=== PATIENT | female | born 1940 | race Caucasian/White ===

== ENCOUNTER 2016-12-07 08:55 | Observation (INO) | payer OTHER, BC ==
--- NOTE | 2016-12-07 09:10 | CPEKG ---
Heart Rate: 74 RR Interval: 811 P-R Interval: 144 QRSD Interval: 82 QT Interval: 404 QTC Interval: 449 P [place]: 21 QRS [place]: -33 T Wave [place]: 39 EKG Severity - OTHERWISE NORMAL ECG - EKG Impression: SINUS RHYTHM EKG Impression: LEFT AXIS DEVIATION Electronically Signed By: Emma Rocha 07-Dec-2016 14:56:21
--- NOTE | 2016-12-07 09:13 | EDPHY ---
H & P Time Seen by Provider: 12/07/16 09:09 HPI/ROS: CHIEF COMPLAINT: Chest pain HISTORY OF PRESENT ILLNESS: 76 year old female presents with a chief complaint of chest pain and shortness of breath. 2 days ago, she was sitting and developed a sharp pain on the left side of her chest radiating to her shoulder and neck, with associated feeling of fullness in her neck and ear. The episode lasted around 10 minutes, but her arm and shoulder continued to hurt throughout the afternoon. She took an aspirin at that time to relieve symptoms. Today around 5:00am, she woke up with left-sided pain in her chest, ribs, arm, and neck. The discomfort has remained constant since onset, four and a half hours ago. The pain increases with deep inspiration and coughing. She has had similar episodes of chest discomfort over the past few months, but none have lasted as long, and she has attributed these to muscle tightness and has not followed up with her primary care provider. Associated with feeling more short of breath than usual over the last few days, especially when doing minor tasks, and a dry cough beginning this morning. No calf pain or swelling. No fever, nausea, vomiting, headache, urinary complaints, or other associated symptoms. REVIEW OF SYSTEMS: Constitutional: No fever, no chills Eyes: No visual changes ENT: No sore throat Gastrointestinal: No nausea, no vomiting, no abdominal pain Genitourinary: No hematuria, no dysuria Musculoskeletal: No leg pain or swelling Skin: No rash Neurological: No headache, no numbness, no weakness Psychiatric: No depression Past Medical/Surgical History: 1. Asthma 2. Recent foot surgery. Social History: at bedside. Smoking Status: Never smoked Physical Exam: General Appearance: Alert, pleasant Eyes: Pupils equal and round, no conjunctival pallor or injection ENT, Mouth: Mucous membranes moist Neck: Normal inspection Respiratory: Lungs are clear to auscultation Cardiovascular: Regular rate and rhythm Gastrointestinal: Abdomen is soft and nontender Neurological: A&O, nonfocal, normal gait Skin: Warm and dry, no rash Extremities: Nontender, no pedal edema Psychiatric: Anxious Constitutional: Initial Vital Signs Temperature (C) 36.4 C 12/07/16 08:57 Heart Rate 79 12/07/16 08:57 Respiratory Rate 18 12/07/16 08:57 Blood Pressure 148/72 H 12/07/16 08:57 O2 Sat (%) 95 12/07/16 08:57 O2 Delivery Mode Room Air Allergies/Adverse Reactions: Penicillins Allergy (Verified 12/07/16 08:57) Sulfa (Sulfonamide Antibiotics) Allergy (Verified 12/07/16 08:57) Home Medications: Medication Instructions Recorded Albuterol [Proventil Inhaler HFA 2 puffs IH Q4H PRN 12/07/16 (*)] Aspirin [Aspirin 81mg (*)] 162 mg PO DAILY PRN 12/07/16 Budesonide/Formoterol Fumarate 2 puffs IH BID 12/07/16 [Symbicort 80-4.5 Mcg Inhaler] Calcium Carbonate/Vitamin D3 1 each PO DAILY 12/07/16 [Calcium 600 + D3 Softgel] Cetirizine [ZyrTEC 10 mg (*)] 10 mg PO DAILY 12/07/16 Cholecalciferol Vit D3 [Vitamin D3 1,000 units PO DAILY 12/07/16 (*)] Estradiol [Climara] 0.025 mg TD TU 12/07/16 Herbals/Supplements -Info Only 1 ea PO DAILY 12/07/16 Multivitamins [Multivitamin (*)] 1 each PO DAILY 12/07/16 [place]-3 Fatty Acids [Fish Oil 1000 1,000 mg PO DAILY 12/07/16 mg (*)] Medical Decision Making - Diagnostics EKG Interpretation: 09:08 EKG interpreted by me reveals normal sinus rhythm, rate 74, no ST/T changes. Interpretation: normal EKG. 10:35 EKG interpreted by me reveals normal sinus rhythm, rate 59, borderline R wave progression, no ST/T changes. Interpretation: normal EKG. Imaging Results: Imaging Impressions Chest/Thorax CTA 12/07/16 09:43 Impression: 1. No visible pulmonary embolus. 2. Scattered stable bronchiectasis, possibly related to JU. 3. Additional findings as above. Findings discussed with Dr. Emma Rocha on 12/07/2016 at 1037 hours. Imaging: Discussed imaging studies w/ call box wirer Radiologist ED Course/Re-evaluation: Clinical presentation concerning for acute coronary syndrome versus pulmonary embolism. Stat EKG reveals no evidence of ischemia or dysrhythmia. Plan for CXR and labs including CBC, BMP, Troponin, D-dimer, and BNP. Plan to administer 15mg IV Toradol for pain relief. 9:45 D-dimer elevated at 0.61. Plan for CT angiogram of the chest to assess for pulmonary embolism. 9:53 Troponin and BNP negative. 10:30am: c/o increased cp. Repeat EKG and Morphine IV ordered. Repeat EKG is unchanged. 10:[address] Tucker, radiologist. CTA negative for pulmonary embolism. Plan to admit for continued observation. Discussed with patient, she concurs. She continues to have moderate left-sided chest pain. 10:59 consulted with [address]ist service. Dr. Crocker accepts admission for chest pain. Differential Diagnosis: The differential diagnosis for the patient's chest pain included but was not limited to myocardial ischemia, pulmonary embolus, chest wall pain, pleural inflammation, and pulmonary infectious causes. - Data Points Laboratory Results: Laboratory Results 12/07/16 09:10 12/07/16 09:10 12/07/16 12/07/16 12/07/16 09:10 09:10 09:10 WBC 7.08 10^3/uL 10^3/uL (3.80-9.50) RBC 4.93 10^6/uL 10^6/uL (4.18-5.33) Hgb 15.5 g/dL g/dL (12.6-16.3) Hct 44.5 % % (38.0-47.0) MCV 90.3 fL fL (81.5-99.8) MCH 31.4 pg pg (27.9-34.1) MCHC 34.8 g/dL g/dL (32.4-36.7) RDW 13.7 % % (11.5-15.2) Plt Count 288 10^3/uL 10^3/uL (150-400) MPV 10.4 fL fL (8.7-11.7) Neut % (Auto) 56.2 % % (39.3-74.2) Lymph % (Auto) 26.3 % % (15.0-45.0) [place] % (Auto) 11.2 % % (4.5-13.0) Eos % (Auto) 4.1 % % (0.6-7.6) Baso % (Auto) 1.8 % H % (0.3-1.7) Nucleat RBC Rel Count 0.0 % % (0.0-0.2) Absolute Neuts (auto) 3.98 10^3/uL 10^3/uL (1.70-6.50) Absolute Lymphs (auto) 1.86 10^3/uL 10^3/uL (1.00-3.00) Absolute Monos (auto) 0.79 10^3/uL 10^3/uL (0.30-0.80) Absolute Eos (auto) 0.29 10^3/uL 10^3/uL (0.03-0.40) Absolute Basos (auto) 0.13 10^3/uL H 10^3/uL (0.02-0.10) Absolute Nucleated RBC 0.00 10^3/uL 10^3/uL (0-0.01) Immature Gran % 0.4 % % (0.0-1.1) Immature Gran # 0.03 10^3/uL 10^3/uL (0.00-0.10) D-Dimer 0.61 ug/mLFEU H ug/mLFEU (0.00-0.50) Sodium 145 mEq/L H mEq/L (134-144) Potassium 4.0 mEq/L mEq/L (3.5-5.2) Chloride 109 mEq/L mEq/L (97-110) Carbon Dioxide 21 mEq/l L mEq/l (22-31) Anion Gap 15 mEq/L mEq/L (8-16) BUN 13 mg/dL mg/dL (7-23) Creatinine 0.9 mg/dL mg/dL (0.6-1.0) Estimated GFR > 60 Glucose 93 mg/dL mg/dL (70-100) Calcium 9.8 mg/dL mg/dL (8.5-10.4) Troponin I < 0.012 ng/mL ng/mL (0-0.034) NT-Pro-B Natriuret Pep 89 pg/mL pg/mL (0-450) Medications Given: Discontinued Medications Ketorolac Tromethamine (Toradol) 15 mg IVP EDNOW ONE Stop: 12/07/16 09:46 Last Admin: 12/07/16 10:20 Dose: 15 mg Morphine Sulfate (Morphine) 4 mg IVP EDNOW ONE Stop: 07/11/17 10:32 Last Admin: 12/07/16 10:44 Dose: 4 mg Ondansetron HCl (Zofran) 4 mg IVP EDNOW ONE Stop: 12/07/16 10:32 Last Admin: 12/07/16 10:44 Dose: 4 mg Departure - Departure Disposition: [facility] Inpatient Acute Clinical Impression: Chest pain Qualifiers: Chest pain type: other chest pain Qualified Code(s): R07.89 - Other chest pain Condition: Fair Report Scribed for: Emma Rocha Report Scribed by: Anali Singleton Date of Report: 12/07/16 Time of Report: 09:11 Physician Review and Approval Statement: 12/07/16 09:11 Portions of this note were transcribed by a medical records clerk. I personally performed a history, physical exam, medical decision making, and confirmed accuracy of information the transcribed note 12/07/16 09:17
[2016-12-07 09:36] LABS: ANION GAP 15 mEq/L (8-16); CALCIUM 9.8 mg/dL (8.5-10.4); CARBON DIOXIDE 21 mEq/l (22-31); CHLORIDE 109 mEq/L (97-110); CREATININE 0.9 mg/dL (0.6-1.0); GLOMERULAR FILTRATION RATE > 60; GLUCOSE 93 mg/dL (70-100); SODIUM 145 mEq/L (134-144)
[2016-12-07 09:42] LABS: % IMMATURE GRANULYOCYTES 0.4 % (0.0-1.1); ABSOLUTE IMMATURE GRANULOCYTES 0.03 10^3/uL (0.00-0.10); ADD DIFF? NO; ADD MORPH? NO; ADD SCAN? NO; ATYPICAL LYMPHOCYTE FLAG 20 (0-99); FRAGMENT RBC FLAG 0 (0-99); HEMATOCRIT 44.5 % (38.0-47.0); HEMOGLOBIN 15.5 g/dL (12.6-16.3); LEFT SHIFT FLG 0 (0-99); LIPEMIA HEMOLYSIS FLAG 90 (0-99); MEAN CELL HEMOGLOBIN 31.4 pg (27.9-34.1); MEAN CELL HEMOGLOBIN CONCENTR. 34.8 g/dL (32.4-36.7); MEAN CELL VOLUME 90.3 fL (81.5-99.8); MEAN PLATELET VOLUME 10.4 fL (8.7-11.7); PLATELET CLUMPS FLAG 0 (0-99); PLATELET COUNT 288 10^3/uL (150-400); RED BLOOD CELL COUNT 4.93 10^6/uL (4.18-5.33); RED CELL DISTRIBUTION WIDTH 13.7 % (11.5-15.2)
[2016-12-07] MEDS ORDERED: KETOROLAC 15 MG/1 ML SDV IVP ONE (09:45)
[2016-12-07 09:47] LABS: TROPONIN I < 0.012 ng/mL (0-0.034)
[2016-12-07] MEDS ORDERED: IOPAMIDOL (ISOVUE 370) 100 ML BTL IV ONE (09:53)
[2016-12-07] MEDS ORDERED: ONDANSETRON 4 MG/2 ML VIAL IVP ONE (10:31)
--- NOTE | 2016-12-07 10:37 | CPEKG ---
Heart Rate: 59 RR Interval: 1017 P-R Interval: 196 QRSD Interval: 82 QT Interval: 460 QTC Interval: 456 P Coden: 26 QRS Coden: -2 T Wave Coden: 37 EKG Severity - BORDERLINE ECG - EKG Impression: SINUS RHYTHM EKG Impression: BORDERLINE R WAVE PROGRESSION, ANTERIOR LEADS Electronically Signed By: Emma Rocha 07-Dec-2016 14:56:03
[2016-12-07] MEDS ORDERED: ACETAMINOPHEN 325 MG TAB PO PRN (14:09)
[2016-12-07] MEDS ORDERED: ONDANSETRON 4 MG/2 ML VIAL IVP PRN (14:09)
[2016-12-07] MEDS ORDERED: ALBUTEROL 3 ML DEYVIAL IH PRN (14:09)
[2016-12-07] MEDS ORDERED: ONDANSETRON DISINTEGRATING 4 MG TAB PO PRN (14:09)
[2016-12-07] MEDS ORDERED: ALBUTEROL 60 PUFFS/8 GM MDI IH PRN (14:12)
--- NOTE | 2016-12-07 14:44 | PDGENHP ---
History Information - Allergies/Home Medication List Allergies/Adverse Reactions: Penicillins Allergy (Verified 12/07/16 08:57) Sulfa (Sulfonamide Antibiotics) Allergy (Verified 12/07/16 08:57) Home Medications: Albuterol [Proventil Inhaler HFA (*)] 2 puffs IH Q4H PRN 12/07/16 [Last Taken Unknown] Aspirin [Aspirin 81mg (*)] 162 mg PO DAILY PRN 12/07/16 [Last Taken 12/05/16] Budesonide/Formoterol Fumarate [Symbicort 80-4.5 Mcg Inhaler] 2 puffs IH BID 04/15 [Last Taken Unknown] Calcium Carbonate/Vitamin D3 [Calcium 600 + D3 Softgel] 1 each PO DAILY [Last Taken 12/06/16] Cetirizine [ZyrTEC 10 mg (*)] 10 mg PO DAILY 12/07/16 [Last Taken 12/06/16] Cholecalciferol Vit D3 [Vitamin D3 (*)] 1,000 units PO DAILY 12/07/16 [Last Taken 12/06/16] Estradiol [Climara] 0.025 mg TD TU 12/07/16 [Last Taken 12/07/16] Herbals/Supplements -Info Only 1 ea PO DAILY 12/07/16 [Last Taken Unknown] Multivitamins [Multivitamin (*)] 1 each PO DAILY 12/07/16 [Last Taken 12/06/16] [place]-3 Fatty Acids [Fish Oil 1000 mg (*)] 1,000 mg PO DAILY 12/07/16 [Last Taken 12/06/16] - Social History Smoking Status: Never smoked Physical Exam Temp Pulse Resp BP Pulse Ox 36.7 C 54 L 20 116/54 L 97 12/07/16 12:33 12/07/16 12:33 12/07/16 12:33 12/07/16 12:33 12/07/16 12:33 O2 (L/minute) 2 Lab Data & Imaging Review 12/07/16 09:10 12/07/16 09:10 WBC 7.08 10^3/uL (3.80-9.50) 12/07/16 09:10 RBC 4.93 10^6/uL (4.18-5.33) 12/07/16 09:10 Hgb 15.5 g/dL (12.6-16.3) 12/07/16 09:10 Hct 44.5 % (38.0-47.0) 12/07/16 09:10 MCV 90.3 fL (81.5-99.8) 12/07/16 09:10 MCH 31.4 pg (27.9-34.1) 12/07/16 09:10 MCHC 34.8 g/dL (32.4-36.7) 12/07/16 09:10 RDW 13.7 % (11.5-15.2) 12/07/16 09:10 Plt Count 288 10^3/uL (150-400) 12/07/16 09:10 MPV 10.4 fL (8.7-11.7) 12/07/16 09:10 Neut % (Auto) 56.2 % (39.3-74.2) 12/07/16 09:10 Lymph % (Auto) 26.3 % (15.0-45.0) 12/07/16 09:10 [place] % (Auto) 11.2 % (4.5-13.0) 12/07/16 09:10 Eos % (Auto) 4.1 % (0.6-7.6) 12/07/16 09:10 Baso % (Auto) 1.8 % (0.3-1.7) H 12/07/16 09:10 Nucleat RBC Rel Count 0.0 % (0.0-0.2) 12/07/16 09:10 Absolute Neuts (auto) 3.98 10^3/uL (1.70-6.50) 12/07/16 09:10 Absolute Lymphs (auto) 1.86 10^3/uL (1.00-3.00) 12/07/16 09:10 Absolute Monos (auto) 0.79 10^3/uL (0.30-0.80) 12/07/16 09:10 Absolute Eos (auto) 0.29 10^3/uL (0.03-0.40) 12/07/16 09:10 Absolute Basos (auto) 0.13 10^3/uL (0.02-0.10) H 12/07/16 09:10 Absolute Nucleated RBC 0.00 10^3/uL (0-0.01) 12/07/16 09:10 Immature Gran % 0.4 % (0.0-1.1) 12/07/16 09:10 Immature Gran # 0.03 10^3/uL (0.00-0.10) 12/07/16 09:10 D-Dimer 0.61 ug/mLFEU (0.00-0.50) H 12/07/16 09:10 Sodium 145 mEq/L (134-144) H 12/07/16 09:10 Potassium 4.0 mEq/L (3.5-5.2) 12/07/16 09:10 Chloride 109 mEq/L (97-110) 12/07/16 09:10 Carbon Dioxide 21 mEq/l (22-31) L 12/07/16 09:10 Anion Gap 15 mEq/L (8-16) 12/07/16 09:10 BUN 13 mg/dL (7-23) 12/07/16 09:10 Creatinine 0.9 mg/dL (0.6-1.0) 12/07/16 09:10 Estimated GFR > 60 12/07/16 09:10 Glucose 93 mg/dL (70-100) 12/07/16 09:10 Calcium 9.8 mg/dL (8.5-10.4) 12/07/16 09:10 Troponin I < 0.012 ng/mL (0-0.034) 12/07/16 09:10 NT-Pro-B Natriuret Pep 89 pg/mL (0-450) 12/07/16 09:10 Assessment & Plan Assessment: Chest pain (Acute)
[2016-12-07] MEDS ORDERED: ASPIRIN 325 MG TAB ONE (14:54)
[2016-12-07] MEDS ORDERED: ALBUTEROL 200 PUFFS/18 GM MDI IH PRN (15:03)
[2016-12-07] MEDS ORDERED: LIDOCAINE 2% VISCOUS 15 ML UDCUP PO PRN (15:15)
[2016-12-07] MEDS ORDERED: MAG HYDROX/AL HYDROX/SIMETH 30 ML UDCUP PO PRN (15:15)
[2016-12-07] MEDS ORDERED: HYOSCYAMINE SULFATE 0.125 MG TAB PO PRN (15:15)
[2016-12-07] MEDS ORDERED: ASPIRIN 325 MG TAB PO ONE (15:16)
[2016-12-07] MEDS ORDERED: NITROGLYCERIN 0.4 MG BTL SL PRN (15:23)
[2016-12-07] MEDS: FAMOTIDINE 20 MG TAB PO SCH (15:31)
--- NOTE | 2016-12-07 16:16 | GHP ---
[f rep st] HISTORY AND PHYSICAL DATE OF ADMISSION: 12/07/2016 CHIEF CONCERN: Chest pain. HISTORY OF PRESENT ILLNESS: The patient is a 76-year-old female with a history of asthma, bronchiec tasis, and acid reflux, who presents to the emergency department complaining of chest pain. She ry enriquez had symptoms 3 days prior to arrival, [place] which [place]. While talking with her , she felt a sudden sharp pain in her left chest, which radiated to her left neck and left arm. This was not associated with shortness of eric th. She also denies associated diaphoresis or nausea. The pain subsided after several minutes. Candace tran planned to visit her primary care doctor upon returning to [place], but woke up this morning with another episode of chest pain at rest. Again, she describes this as sharp and fleeting. Since her arrival in the hospital, she notes she has suddenly developed a hoarse voice, while talking with her son. She does endorse a history of acid reflux and states she has been taking a lot of Rolaids lat tamanna. She also has a pulmonary history of bronchiectasis, which has been followed by [facility]. Overall her symptoms have been stable. She denies productive cough or fevers. In the emergency department, she had a slightly elevated D-dimer, and underwent CT pulmonary angiogr am, which was negative for pulmonary embolism, though did show stable bronchiectasis, again suspicio n is raised for possible JU. Her initial EKGs are normal, her initial troponin is negative. She d id have recurrent pain in the emergency department, and is admitted to the hospital for further eval uation. PAST MEDICAL HISTORY: 1. Bronchiectasis. 2. Asthma. 3. Seasonal allergies. 4. Acid reflux disease. MEDICATIONS: Please see [facility] for completed outpatient medication list. ALLERGIES: Penicillin and sulfa. PAST SURGICAL HISTORY: Cholecystectomy, appendectomy, and recent foot surgery. SOCIAL HISTORY: The patient is , her and son are at the bedside. She has a distant tobacco history and quit smoking when she was 23 years old. She reports rare alcohol use, and denie s illicit drug use. FAMILY HISTORY: Both of her parents have asthma. REVIEW OF SYSTEMS: A 10-point review of systems was performed and is negative, except as per HPI. OBJECTIVE: VITAL SIGNS: Temperature is 36.7, blood pressure 116/54, heart rate 54, respiratory rat e 20, she is 97% on room air. GENERAL: The patient is awake, alert and oriented, in no acute distr ess. HEENT: Head is atraumatic, normocephalic. Pupils equal, round, and reactive to light. Extra ocular muscles intact. Oropharynx is clear. Mucous members are moist. NECK: Supple. There is no JVD. HEART: Regular rate and rhythm without murmur. LUNGS: Clear to auscultation bilaterally. She does have some chest wall tenderness to palpation across the left anterior chest, and more focal ly across her pectoral muscle. ABDOMEN: Soft, nondistended, nontender. Normoactive bowel sounds. EXTREMITIES: Without cyanosis, clubbing, or edema. NEUROLOGIC: Grossly nonfocal. LABORATORY DATA: CBC is completely normal. D-dimer is 0.61. Complete metabolic panel shows sodium of 145, potassium of 4, chloride 109, bicarb 22, creatinine 0.9. Troponins are negative x2. NT pr oBNP is 89. Chest x-ray is personally reviewed and interpreted, reveals some mild peribronchial wall thickening, and mildly prominent lung volumes, without evidence of consolidation or pleural effusions. A CT pulmonary angiogram is negative for pulmonary embolism. Shows scattered stable bronchiectasis. Question if this could be related to JU. EKG shows normal sinus rhythm with no ST-segment or T-wave changes concerning for ischemia. Repeat EKG is unchanged. ASSESSMENT AND PLAN: The patient is a 76-year-old female with history of asthma, bronchiectasis, an d acid reflux disease, who presents to the emergency department with chest pain. 1. Chest pain. This sounds like atypical chest pain, and my suspicion for acute coronary syndrome is low. Her initial EKGs are normal, and there is no evidence of evolutionary changes. She has 2 n egative troponins. I query if this could be acid reflux related versus esophageal spasm, and we andrew l try a GI cocktail, as well as an H2 kendrick. Also considered pleurisy given her underlying pulmon jyoti issues. She has no evidence of active infection, without fevers or productive cough. I will di scuss this case with Pulmonary prior to discharge, though, I doubt this is the underlying cause of h er chest pain presentation, and she should likely just have outpatient followup with Pulmonology. A lso consider musculoskeletal given her chest wall tenderness to palpation. However, I will defer an tiinflammatories given her history of acid reflux. I will continue to trend her troponins and perfo rm an exercise treadmill stress test in the morning. In the meantime, she will be given a full-dose aspirin. We will check a lipid panel and we will see how she responds to the other aforementioned interventions. 2. Asthma. The patient has no wheezing on exam. She is not hypoxemic. We will continue her Symbi beatrice and add p.r.n. nebulizers. 3. History of acid reflux. As above, we will give a GI cocktail p.r.n. and start Pepcid. 4. Bronchiectasis. There has been some question of microbacterium avium intracellulare infection. She does not present with infectious symptoms. I will review this case with Pulmonology, though, I suspect outpatient followup is appropriate. 5. Code status. Patient is full code. 6. Disposition. Patient to observation status. 7. Deep vein thrombosis prophylaxis. We will place SCDs for now. Consider transition to [place] major she have a prolonged hospitalization. /[id number]/MODL
--- NOTE | 2016-12-07 17:42 | ECHO ---
[id number] + + [address] : : [place] [address] : : [phone] + + Adult Echocardiographic Report + -------+ :Name: EDGAR BRADFORD KStudy Date: 12/07/2016 02:33 PM : : Hospital Admission Number: [id number] Locati on: 205: :: 1940 Gender: Female Height: 68 in : :Age: 76 yrs Race: WH Weight: 151 lb : :Reason For Study: Eval LV Fx : : BSA: 1.8 meter s2 : :History: Chest pain, Dyspnea : + -------+ MMode/2D Measurements \T\ Calculations IVSd: 0.86 cm LVIDd: 3.8 cm FS: 35.0 % Ao root diam: 3.2 cm LVPWd: 0.87 cm LVIDs: 2.5 cm EDV(Teich): 61.0 ml ACS: 2.1 cm ESV(Teich): 21.3 ml EF(Teich): 65.0 % Normal Measurement Values: + + :LVIDd (3.5-5.7cm) IVSd (0.6-1.1cm) LVPWd (0.6-1.1cm) Aortic Root (2.0-3.7cm)Left Atrium (1.5-4.0cm): :LV Vol(d) (76-115ml) LV Vol(s) (29-48ml) Ejec Fraction (50-65%)PV Flip (0.6- 1.2m/s) TV Flip (0.4-1.0m/s) : :MV E Flip (0.8-1.0m/s)MV A Flip (0.3-1.0m/s)LVOT Flip (0.7-1.2m/s) Asc Ao Flip ( 0.9-1.8m/s) : + + Doppler Measurements \T\ Calculations MV E max flip: Ao V2 max: LV V1 max: PA V2 max: 75.5 cm/sec 77.4 cm/sec 75.5 cm/sec 57.0 cm/sec MV A max flip: Ao max PG: LV V1 max PG: PA max P.3 cm/sec 2.4 mmHg 2.3 mmHg 1.3 mmHg MV E/A: 1.4 TR max flip: 256.5 cm/sec TR max P.3 mmHg RAP systole: 5.0 mmHg RVSP(TR): 31.3 mmHg Left Ventricle The left ventricle is normal in size. There is normal left ventricular wall thickness. The left ventricular ejection fraction is normal. Ejection Fraction = 66%. The left ventricular wall motion is normal. Right Ventricle The right ventricle is normal in size and function. Atria The left atrial size is normal. Right atrial size is normal. Mitral Valve The mitral valve is normal in structure and function. There is no evidence of mitral valve prolapse. There is no mitral valve stenosis. There is trace mitral regurgitation. Tricuspid Valve Normal tricuspid valve. There is trace tricuspid regurgitation. Right ventricular systolic pressure is normal. Aortic Valve The aortic valve is normal in structure and function. There is no aortic stenosis. There is no aortic insufficiency. Pulmonic Valve The pulmonic valve is normal in structure and function. There is no pulmonic valvular regurgitation. Great Vessels The aortic root is normal size. Pericardium/Pleural There is no pericardial effusion. Conclusion A complete two-dimensional transthoracic echocardiogram was performed (2D, M-mode, Doppler and color flow Doppler). The left ventricular ejection fraction is normal. Ejection Fraction = 66%. The left ventricular wall motion is normal. The right ventricle is normal in size and function. The mitral valve is normal in structure and function. There is trace mitral regurgitation. There is trace tricuspid regurgitation. Right ventricular systolic pressure is normal. The aortic valve is normal in structure and function. The pulmonic valve is normal in structure and function. There is no pericardial effusion. No prior echo Final Reading Physician: Dr Maryana Simmons electronically signed on 12/07/2016 05:41 PM Ordering Physician: Elisa Crocker Performed By: Francisco Mills, LIBANCS
[2016-12-07] MEDS: BUDESONIDE/FORMOTEROL 80/4.5 60 PUFFS/MDI IH SCH (21:20)
[2016-12-08] MEDS: FAMOTIDINE 20 MG TAB PO SCH ×2 (01:29→08:15)
[2016-12-08 05:14] LABS: ANION GAP 7 mEq/L (8-16); CALCIUM 9.6 mg/dL (8.5-10.4); CARBON DIOXIDE 25 mEq/l (22-31); CHLORIDE 108 mEq/L (97-110); CHOLESTEROL 169 mg/dL (140-220); CHOLESTEROL/HDL RATIO 2.32 RATIO (1.00-4.44); CREATININE 0.9 mg/dL (0.6-1.0); GLOMERULAR FILTRATION RATE > 60; GLUCOSE 79 mg/dL (70-100); HIGH DENSITY LIPOPROTEIN 73 mg/dL (40-85); LDL/HDL RATIO 1.15 RATIO (1.00-3.22); LOW DENSITY LIPOPROTEIN 84 mg/dL (80-100); NON-HIGH DENSITY LIPOPROTEIN 96 mg/dL (90-129); POTASSIUM 4.7 mEq/L (3.5-5.2); SODIUM 140 mEq/L (134-144); TRIGLYCERIDE 63 mg/dL (35-135); VERY LOW DENSITY LIPOPROTEINS 12 mg/dL (8-25)
[2016-12-08] MEDS: BUDESONIDE/FORMOTEROL 80/4.5 60 PUFFS/MDI IH SCH (08:16)
[2016-12-08] MEDS ORDERED: CETIRIZINE 10 MG TAB PO SCH (09:00)
[2016-12-08] MEDS ORDERED: ASPIRIN 81 MG CHEWABLE TAB PO SCH (09:00)
[2016-12-08 13:03] VITALS: BP 115/56; PULSE 82; RESP 17; TEMP 97.9; O2SAT 91
--- NOTE | 2016-12-08 22:20 | CPR ---
[f rep st] NONINVASIVE CARDIAC PROCEDURE REPORT PROCEDURE PERFORMED: Cardiac exercise treadmill test. INDICATION FOR PROCEDURE: Chest pressure. PRE: After obtaining informed consent, the patient was placed on electrocardiogram. Initial EKG sh ows sinus rhythm, normal axis, and poor R-wave progression in anterior leads. The patient reports p ain in left upper shoulder, worsening with palpitations. Denies any shortness of breath or symptoms suggesting ischemia. Initial blood pressure was 96/60, saturation 94% on room air. STRESS: The patient was placed on exercise treadmill, following standard Ronny protocol, and the fo llowing findings: 1. The patient exercised for 6 minutes. 2. 7.2 METs. 3. Attaining a heart rate of 146 beats per minute, which was 101% of her MPHR. 4. No exertional symptoms suggesting ischemia. 5. No significant EKG changes at peak exercise suggesting ischemia. 6. SpO2 greater than 90%. 7. No arrhythmias noted in rest, stress or recovery. 8. BP variation. Rest 96/60, peak 160/60. 9. Test was stopped due to maximum effort. 10. Pearson treadmill score of 6, placing patient at low cardiovascular risk. RECOVERY: Patient recovered for 5 minutes, returning heart rate and BP back to baseline. No signif icant arrhythmias noted. Patient reporting no significant chest pressure or pain. IMPRESSION: A 76-year-old female, admitted to the hospital for ongoing chest pressure, negative tro ponins x2, exercise treadmill showing no signs of ischemia at peak exercise, no symptoms suggesting ischemia, Pearson treadmill score of 6, placing her at low cardiovascular risk. Results went over with Dr. Wheeler, and called to Dr. Crocker of hospital services. /[id number]/MODL
--- NOTE | 2016-12-09 07:11 | GDS ---
[f rep st] DISCHARGE SUMMARY DISCHARGE DIAGNOSES: 1. Atypical chest pain, noncardiac. 2. Bronchiectasis. 3. Asthma. 4. History of acid reflux. CONSULTANTS: None. IMAGING/PROCEDURES: 1. CT pulmonary angiogram December 07, 2016, was negative for pulmonary embolism, showed scattered stab le bronchiectasis. 2. Echocardiogram December 07, 2016, showed a normal ejection fraction of 66%, with normal wall motion, normal right ventricular systolic pressure, and no significant valvular disease. 3. Exercise treadmill stress test was low risk for cardiac event and overall appeared nonischemic. The report is still pending. HISTORY: For details, please see the history and physical dated December 07. In brief, the patient is a 76-year-old female with a history of bronchiectasis and asthma, as well as acid reflux, who presen william to the emergency department complaining of chest pain. She was admitted to the hospital for fur ther evaluation. HOSPITAL COURSE: Patient was admitted to the progressive care unit. She had normal EKGs without is chemic changes. She had 3 negative troponins. She did have recurrent chest pain during the hospita lization which was associated with chest wall tenderness. In addition, she reports a history of aci d reflux and has been using a lot more Rolaids recently. She has also developed a hoarse voice and a mild nonproductive cough. Overall, I am suspicious for acid reflux-related symptoms such as esoph ageal spasm. Also, consider possible musculoskeletal etiologies, as she did report doing some heavy cleaning a couple days prior to presentation. Also, consider pleurisy, given her history of bronch iectasis. There was some question if she desaturated during the night the night before for discharg e, however, there is no documentation of that. Her lowest documented oxygen saturation was 91%. Candace tran is satting in the mid 90s on room air at discharge. It is recommended she follow up with her pulm onologist, Dr. Jamaal Archer, regarding her bronchiectasis. She was given a 1-month supply of Proton ix, and she is to have close followup with her primary care. DISPOSITION: Patient is discharged home in stable condition. FOLLOWUP: 1. Dr. Yelena Landrum, primary care. 2. Dr. Jamaal Archer, pulmonology. DISCHARGE MEDICATIONS: Please see [facility] for complete updated outpatient medication list. She wi ll continue all outpatient medications as previously prescribed including baby aspirin. New prescri ptions include: Protonix 40 mg p.o. daily #30, no refills. /[id number]/MODL
== END 2016-12-08 14:07 | disposition home or self-care (01) ==
LOC: F2W 12:02
PROVIDERS: ADMIT Hospitalist; ATTEND Hospitalist
DX: R07.89 Other chest pain (principal); J47.9 Bronchiectasis, uncomplicated; J45.909 Unspecified asthma, uncomplicated; K21.9 Gastro-esophageal reflux disease without esophagitis
CPT/HCPCS: 71275; 93005; 93017; 93306; 96374; 96375; 99285; G0378; J1885; J2405; Q9967

== ENCOUNTER → 2017-02-01 | Outpatient (CLI) | payer OTHER, BC | LOC: BHFA 14:30 | PROVIDERS: ATTEND Internal Medicine Cardiovascular Disease | DX: J45.909 Unspecified asthma, uncomplicated (principal) ==

== ENCOUNTER → 2017-05-17 | Outpatient (CLI) | payer OTHER, BC | LOC: FIMAGING 09:56 | PROVIDERS: ATTEND Internal Medicine | DX: Z12.31 Encounter for screening mammogram for malignant neoplasm of breast (principal) | CPT/HCPCS: G0202 ==

== ENCOUNTER 2017-10-09 09:13 | Emergency (ER) | payer OTHER, BC ==
--- NOTE | 2017-10-09 09:21 | EDPHY ---
H & P Time Seen by Provider: 10/09/17 09:21 HPI/ROS: CHIEF COMPLAINT: Vomiting and diarrhea HISTORY OF PRESENT ILLNESS: Patient is had symptoms since of this past week. Persists today and is severe associated with 10 lb weight loss. Multiple episodes of vomiting and diarrhea not associated with hematemesis or coffee-ground emesis, no melena or red blood per rectum. Some abdominal discomfort but no pain. No urinary symptoms and no fever. Symptoms continue severe, worse with oral intake. REVIEW OF SYSTEMS: Eye: no change in vision ENT: no sore throat Cardiac: no chest pain or syncope Pulmonary: no cough or SOB Abdomen: HPI Musculoskeletal: no back pain Skin: no rash Neuro: Mild headache Constitutional: no fever : no urinary symptoms A comprehensive 10 point review of systems is otherwise negative aside from elements mentioned in the history of present illness. PAST MEDICAL HISTORY: Includes bronchiectasis and asthma, cholecystectomy, appendectomy. Social history: rare alcohol, currently nonsmoker General Appearance: Alert and conversant, cooperative. Eyes: No scleral icterus. ENT, Mouth: Dry mucous membranes Respiratory: Normal respiratory effort, breath sounds equal, lungs are clear to auscultation. Cardiovascular: Regular rate and rhythm. Gastrointestinal: Abdomen is soft and non tender. No rebound or guarding, bowel sounds present. Neurological: Alert, face symmetric, normal motor and sensory in extremities. Skin: Warm and dry, no rashes. Musculoskeletal: No peripheral edema. Psychiatric: Not agitated. Emergency Department course/MDM: Normal saline 1 L IV, CBC and chemistry, Zofran 4 mg IV discussed and consented. 1042: labs discussed, with patient and . Plan for hydration then oral fluid trial, home with Zofran ODT and Imodium if tolerates. 1 bowel movement so far in the emergency department. 1220: Up to the bathroom, tolerated oral fluids, wants to go home which I think is reasonable. Smoking Status: Never smoked Constitutional: Initial Vital Signs Temperature (C) 36.7 C 10/09/17 09:17 Heart Rate 91 10/09/17 09:17 Respiratory Rate 18 10/09/17 09:17 Blood Pressure 116/76 10/09/17 09:17 O2 Sat (%) 94 10/09/17 09:17 O2 Delivery Mode Room Air O2 (L/minute) 1 Allergies/Adverse Reactions: Penicillins Allergy (Verified 10/09/17 09:16) Sulfa (Sulfonamide Antibiotics) Allergy (Verified 10/09/17 09:16) Home Medications: Medication Instructions Recorded Albuterol [Proventil Inhaler HFA 2 puffs IH Q4H PRN 12/07/16 (*)] Budesonide/Formoterol Fumarate 2 puffs IH BID 12/07/16 [Symbicort 80-4.5 Mcg Inhaler] Calcium Carbonate/Vitamin D3 1 each PO DAILY 12/07/16 [Calcium 600 + Vit D 400 Softgl] Cetirizine [ZyrTEC 10 mg (*)] 10 mg PO DAILY 12/07/16 Cholecalciferol Vit D3 [Vitamin D3 1,000 units PO DAILY 12/07/16 (*)] Estradiol [Climara] 0.025 mg TD TU 12/07/16 Herbals/Supplements -Info Only 1 ea PO DAILY 12/07/16 Multivitamins [Multivitamin (*)] 1 each PO DAILY 12/07/16 [place]-3 Fatty Acids [Fish Oil 1000 1,000 mg PO DAILY 12/07/16 mg (*)] Pantoprazole Sodium [Protonix] 40 mg PO DAILY #30 tablet. 12/08/16 Ondansetron Odt [Zofran Odt] 4 mg PO Q4PRN #10 tab 10/09/17 Medical Decision Making Differential Diagnosis: Differential considered including but not limited to gastroenteritis, bowel obstruction, electrolyte disturbance, food poisoning, other viral syndrome. - Data Points Laboratory Results: Laboratory Results 10/09/17 09:28 10/09/17 09:28 10/09/17 10/09/17 09:28 09:28 WBC 5.46 10^3/uL 10^3/uL (3.80-9.50) RBC 5.46 10^6/uL H 10^6/uL (4.18-5.33) Hgb 16.5 g/dL H g/dL (12.6-16.3) Hct 48.3 % H % (38.0-47.0) MCV 88.5 fL fL (81.5-99.8) MCH 30.2 pg pg (27.9-34.1) MCHC 34.2 g/dL g/dL (32.4-36.7) RDW 13.7 % % (11.5-15.2) Plt Count 264 10^3/uL 10^3/uL (150-400) MPV 9.8 fL fL (8.7-11.7) Neut % (Auto) 51.1 % % (39.3-74.2) Lymph % (Auto) 28.9 % % (15.0-45.0) [place] % (Auto) 17.6 % H % (4.5-13.0) Eos % (Auto) 1.5 % % (0.6-7.6) Baso % (Auto) 0.7 % % (0.3-1.7) Nucleat RBC Rel Count 0.0 % % (0.0-0.2) Absolute Neuts (auto) 2.79 10^3/uL 10^3/uL (1.70-6.50) Absolute Lymphs (auto) 1.58 10^3/uL 10^3/uL (1.00-3.00) Absolute Monos (auto) 0.96 10^3/uL H 10^3/uL (0.30-0.80) Absolute Eos (auto) 0.08 10^3/uL 10^3/uL (0.03-0.40) Absolute Basos (auto) 0.04 10^3/uL 10^3/uL (0.02-0.10) Absolute Nucleated RBC 0.00 10^3/uL 10^3/uL (0-0.01) Immature Gran % 0.2 % % (0.0-1.1) Immature Gran # 0.01 10^3/uL 10^3/uL (0.00-0.10) Sodium 141 mEq/L mEq/L (135-145) Potassium 3.8 mEq/L mEq/L (3.5-5.2) Chloride 103 mEq/L mEq/L (97-110) Carbon Dioxide 21 mEq/l L mEq/l (22-31) Anion Gap 17 mEq/L H mEq/L (8-16) BUN 12 mg/dL mg/dL (7-23) Creatinine 0.9 mg/dL mg/dL (0.6-1.0) Estimated GFR > 60 Glucose 104 mg/dL H mg/dL (70-100) Calcium 9.2 mg/dL mg/dL (8.5-10.4) Medications Given: Discontinued Medications Sodium Chloride (Ns) 1,000 mls @ 0 mls/hr IV EDNOW ONE; Wide Open PRN Reason: Protocol Stop: 10/09/17 09:34 Last Admin: 10/09/17 09:35 Dose: 1,000 mls Sodium Chloride (Ns) 1,000 mls @ 0 mls/hr IV EDNOW ONE; Wide Open PRN Reason: Protocol Stop: 10/09/17 10:27 Last Admin: 10/09/17 10:31 Dose: 1,000 mls Ondansetron HCl (Zofran) 4 mg IVP EDNOW ONE Stop: 10/09/17 09:34 Last Admin: 10/09/17 09:36 Dose: 4 mg Departure - Departure Disposition: Home, Routine, Self-Care Clinical Impression: Vomiting and diarrhea, Dehydration Condition: Good Instructions: Dehydration (ED) Referrals: Herminia Vasquez MD [Primary Care Provider] - As per Instructions Prescriptions: Ondansetron Odt [Zofran Odt] 4 mg PO Q4PRN #10 tab
[2017-10-09] MEDS ORDERED: NS 1,000 ML IV ONE ×2 (09:33→10:26)
[2017-10-09] MEDS ORDERED: ONDANSETRON 4 MG/2 ML VIAL IVP ONE (09:33)
[2017-10-09] MEDS ORDERED: ONDANSETRON 4 MG/2 ML VIAL ONE (09:34)
[2017-10-09 09:39] LABS: PLATELET COUNT 264 10^3/uL (150-400)
[2017-10-09 12:10] VITALS: BP 94/49
== END 2017-10-09 12:42 | disposition home or self-care (01) ==
DX: R11.10 Vomiting, unspecified (principal); R19.7 Diarrhea, unspecified; E86.0 Dehydration; E86.9 Volume depletion, unspecified; J45.909 Unspecified asthma, uncomplicated
CPT/HCPCS: 96374; 99284; J2405

== ENCOUNTER → 2017-10-31 | Outpatient (CLI) | payer OTHER, BC | LOC: FIMAGING 10:15 | PROVIDERS: ATTEND Internal Medicine | DX: Z13.820 Encounter for screening for osteoporosis (principal); M85.89 Other specified disorders of bone density and structure, multiple sites; Z78.0 Asymptomatic menopausal state ==

== ENCOUNTER 2018-06-04 09:09 | Emergency (ER) | payer OTHER, BC ==
[2018-06-04] MEDS ORDERED: NS 1,000 ML IV ONE (09:20)
--- NOTE | 2018-06-04 09:35 | EDPHY ---
H & P Stated Complaint: Diarrheal stools since Tue;nauseated;hasn't vom in >24 hrs Time Seen by Provider: 06/04/18 09:20 HPI/ROS: CHIEF COMPLAINT: Abdominal pain and diarrhea HISTORY OF PRESENT ILLNESS: The patient presents to the ED with persistent abdominal pain and diarrhea. She developed symptoms of nausea, vomiting and diarrhea on Tuesday of this week. Her nausea and vomiting has subsided however she has continued to have ongoing abdominal pain. She reports multiple nonbloody episodes of diarrhea each day. She complains of generalized abdominal pain. Past surgical history is significant for appendectomy and cholecystectomy. Past medical history is noteworthy only for asthma. The patient denies fever, dysuria, productive cough or other acute complaints. REVIEW OF SYSTEMS: A comprehensive 10 point review of systems is otherwise negative aside from elements mentioned in the history of present illness. Source: Patient - Personal History Current Tetanus Diphtheria and Acellular Pertussis (TDAP): Yes - Medical/Surgical History Hx Asthma: Yes Hx Chronic Respiratory Disease: No Hx Diabetes: No Hx Cardiac Disease: No Hx Renal Disease: No Hx Cirrhosis: No Hx Alcoholism: No Hx HIV/AIDS: No Hx Splenectomy or Spleen Trauma: No Other PMH: choly/foot surg. asthma, GERD - Social History Smoking Status: Never smoked - Physical Exam Exam: General Appearance: Alert, no distress Eyes: Pupils equal and round no pallor or injection ENT, Mouth: Mucous membranes moist Respiratory: There are no retractions, lungs are clear to auscultation Cardiovascular: Regular rate and rhythm Gastrointestinal: Hyperactive bowel sounds, generalized abdominal tenderness, no peritoneal signs Neurological: 5/5 strength noted all 4 extremities Skin: Warm and dry, no rashes Musculoskeletal: Neck is supple nontender Extremities: symmetrical, full range of motion Psychiatric: Patient is oriented X 3, there is no agitation Constitutional: Initial Vital Signs Temperature (C) 36.7 C 06/04/18 09:12 Heart Rate 90 06/04/18 09:12 Respiratory Rate 18 06/04/18 09:12 Blood Pressure 121/81 H 06/04/18 09:12 O2 Sat (%) 96 06/04/18 09:12 O2 Delivery Mode Room Air Allergies/Adverse Reactions: Sulfa (Sulfonamide Antibiotics) Allergy (Intermediate, Verified 06/04/18 09:18) Hives Penicillins Allergy (Verified 06/04/18 09:18) Hives Home Medications: Medication Instructions Recorded Albuterol [Proventil Inhaler HFA 2 puffs IH Q4H PRN 12/07/16 (*)] Budesonide/Formoterol Fumarate 2 puffs IH BID 12/07/16 [Symbicort 80-4.5 Mcg Inhaler] Estradiol [Climara] 0.025 mg TD TU 12/07/16 Pantoprazole Sodium [Protonix] 40 mg PO DAILY #30 tablet. 12/08/16 Fluticasone/Salmeterol [Advair Hfa 12 gm IH 06/04/18 115-21 Mcg Inhaler] Ondansetron Odt [Zofran Odt] 4 mg PO Q4PRN PRN #20 tab 06/04/18 Medical Decision Making ED Course/Re-evaluation: The patient presents to the ED with vomiting and diarrhea. The patient's vomiting resolved several days ago however she has continued to have ongoing watery diarrhea. The patient has not been on any recent antibiotics. The patient arrived and was noted to have a benign abdominal examination. She had an IV established. She received 2 L of normal saline. Patient was treated with IV Toradol and 4 mg of IV Zofran. I re-evaluated the patient several times over a 3 hr period in the ED. At 12:15 p.m. The patient is feeling better. There has been no vomiting her diarrhea has subsided. The patient will be discharged home with instructions to begin Imodium and use Zofran as needed for management of her symptoms. The patient is provided customary aftercare instructions and return precautions. Differential Diagnosis: Differential diagnosis considered includes gastroenteritis, dehydration, metabolic abnormality - Data Points Laboratory Results: Laboratory Results 06/04/18 09:34 06/04/18 09:34 06/04/18 06/04/18 09:34 09:34 WBC 8.19 10^3/uL 10^3/uL (3.80-9.50) RBC 5.06 10^6/uL 10^6/uL (4.18-5.33) Hgb 15.5 g/dL g/dL (12.6-16.3) Hct 44.7 % % (38.0-47.0) MCV 88.3 fL fL (81.5-99.8) MCH 30.6 pg pg (27.9-34.1) MCHC 34.7 g/dL g/dL (32.4-36.7) RDW 13.8 % % (11.5-15.2) Plt Count 290 10^3/uL 10^3/uL (150-400) MPV 10.1 fL fL (8.7-11.7) Neut % (Auto) 67.0 % % (39.3-74.2) Lymph % (Auto) 18.8 % % (15.0-45.0) [place] % (Auto) 11.1 % % (4.5-13.0) Eos % (Auto) 1.8 % % (0.6-7.6) Baso % (Auto) 0.9 % % (0.3-1.7) Nucleat RBC Rel Count 0.0 % % (0.0-0.2) Absolute Neuts (auto) 5.49 10^3/uL 10^3/uL (1.70-6.50) Absolute Lymphs (auto) 1.54 10^3/uL 10^3/uL (1.00-3.00) Absolute Monos (auto) 0.91 10^3/uL H 10^3/uL (0.30-0.80) Absolute Eos (auto) 0.15 10^3/uL 10^3/uL (0.03-0.40) Absolute Basos (auto) 0.07 10^3/uL 10^3/uL (0.02-0.10) Absolute Nucleated RBC 0.00 10^3/uL 10^3/uL (0-0.01) Immature Gran % 0.4 % % (0.0-1.1) Immature Gran # 0.03 10^3/uL 10^3/uL (0.00-0.10) Sodium 137 mEq/L mEq/L (135-145) Potassium 3.8 mEq/L mEq/L (3.5-5.2) Chloride 107 mEq/L mEq/L (97-110) Carbon Dioxide 22 mEq/l mEq/l (22-31) Anion Gap 8 mEq/L mEq/L (6-14) BUN 8 mg/dL mg/dL (7-23) Creatinine 0.8 mg/dL mg/dL (0.6-1.0) Estimated GFR > 60 Glucose 107 mg/dL H mg/dL (70-100) Calcium 9.4 mg/dL mg/dL (8.5-10.4) Medications Given: Discontinued Medications Sodium Chloride (Ns) 1,000 mls @ 0 mls/hr IV EDNOW ONE; Wide Open PRN Reason: Protocol Stop: 06/04/18 09:21 Last Admin: 06/04/18 09:33 Dose: 1,000 mls Ketorolac Tromethamine (Toradol) 15 mg IVP EDNOW ONE Stop: 06/04/18 10:57 Last Admin: 06/04/18 11:17 Dose: 15 mg Ondansetron HCl (Zofran) 4 mg IVP EDNOW ONE Stop: 06/04/18 10:57 Last Admin: 06/04/18 11:17 Dose: 4 mg Departure - Departure Disposition: Home, Routine, Self-Care Clinical Impression: Gastroenteritis, Dehydration Condition: Good Instructions: Gastroenteritis (ED) Additional Instructions: 1. Zofran as needed for nausea. 2. Imodium as needed for diarrhea. 3. Return to the ED for markedly worsening symptoms, pain, intractable vomiting or other concerns. 4. Follow up with your primary care provider this week for recheck as needed Referrals: Herminia Vasquez MD [Primary Care Provider] - As per Instructions
[2018-06-04 09:47] LABS: PLATELET COUNT 290 10^3/uL (150-400)
[2018-06-04] MEDS ORDERED: KETOROLAC 15 MG/1 ML SDV IVP ONE (10:56)
[2018-06-04] MEDS ORDERED: ONDANSETRON 4 MG/2 ML VIAL IVP ONE (10:56)
[2018-06-04 12:27] VITALS: BP 107/54
== END 2018-06-04 12:26 | disposition home or self-care (01) ==
DX: K52.9 Noninfective gastroenteritis and colitis, unspecified (principal); E86.0 Dehydration
CPT/HCPCS: 96374; 96375; 99284; J1885; J2405

== ENCOUNTER → 2018-06-14 | Outpatient (CLI) | payer OTHER, BC | LOC: FIMAGING 11:19 | PROVIDERS: ATTEND Internal Medicine | DX: Z12.31 Encounter for screening mammogram for malignant neoplasm of breast (principal) ==